=== PATIENT | male | born 1950 | race Caucasian/White ===

== ENCOUNTER 2019-01-08 19:11 | Emergency (ER) | payer MEDICARE, BC ==
[~2019-01-08] VITALS: Ht 167.6 cm; Wt 93.0 kg
[2019-01-08] MEDS ORDERED: LIDOCAINE 2% JEL UROJET 10 ML MM ONE ×2 (19:40→20:00)
--- NOTE | 2019-01-08 19:40 | NUR ---
BIBS FOR C/O URINARY RETENTION SINCE 0800.
--- NOTE | 2019-01-08 19:57 | NUR ---
URINE COLLECTED AND SENT TO THE LAB
[2019-01-08] MEDS ORDERED: TAMSULOSIN 0.4 MG CAP.SR.24H PO ONE (20:00)
[2019-01-08 20:01] LABS: APPEARANCE,URINE Clear (CLEAR); BILIRUBIN,URINE Negative (NEGATIVE); BLOOD, URINE Trace-intact Ery/uL (NEGATIVE); COLOR,URINE Yellow (YELLOW); KETONES,URINE Negative (NEGATIVE); LEUKOCYTE ESTERASE ,URINE Negative (NEGATIVE); NITRITE, URINE Negative (NEGATIVE); PH,URINE 5.5 (5.0-8.0); PROTEIN,URINE Trace mg/dl (NEGATIVE); UGLUCOSE 100 MG/DL mg/dL (NEGATIVE); UROBILINOGEN,URINE 0.2 EU/dL (0.2)
[2019-01-08] MEDS ORDERED: TAMSULOSIN 0.4 MG CAP.SR.24H ONE (20:02)
[2019-01-08 20:15] LABS: BACTERIA,URINE Few /HPF (None Seen); SQUAMOUS EPITHELIAL CELL,UR Few /HPF (None Seen); WBC,URINE 0-2 /HPF (0-3)
--- NOTE | 2019-01-08 20:30 | NUR ---
F/C WAS D/C'D PER PT'S REQUEST AND MD'S APPROVAL. PER PT HE HAS ALREADY SPOKE TO HIS SURGEON AND HIS SURGEON INSTRUCTED HIM TO D/C THE F/C.Patient discharged to home in stable condition. Written and verbal after care instructions given. Patient verbalizes understanding of instruction.
[2019-01-08 20:53] VITALS: BP 119/75
== END 2019-01-08 20:54 | disposition home or self-care (01) ==
LOC: ER 19:16
DX: R33.9 Retention of urine, unspecified (principal)
CPT/HCPCS: 51702; 81001; 99284; J3490; 81000-TC